=== PATIENT | female | born 1960 | race Caucasian/White ===

== ENCOUNTER 2018-07-20 03:27 | Emergency (ER) | payer MEDICARE, MEDICAID ==
[~2018-07-20] VITALS: Ht 162.6 cm; Wt 95.0 kg
[2018-07-20] MEDS ORDERED: ipratropium/albuterol 3ml nebule NEB ONE (03:30)
[2018-07-20] MEDS ORDERED: predniSONE 20 mg tablet PO ONE (03:30)
[2018-07-20 03:33] VITALS: BP 125/105
[2018-07-20] MEDS ORDERED: PRED20TA PO (03:52)
[2018-07-20] MEDS ORDERED: LEVO500T89 PO (03:52)
[2018-07-20 04:17] LABS: BASOPHILS # (AUTO) 0.1 X10'3 (0-0.2); BASOPHILS % (AUTO) 0.6 % (0-1); EOSINOPHILS # (AUTO) 0.3 X10'3 (0-0.9); EOSINOPHILS % (AUTO) 3.4 % (0-6); HEMATOCRIT 45.6 % (35.0-45.0); HEMOGLOBIN 14.9 g/dl (12.0-16.0); LYMPHOCYTES # (AUTO) 2.9 X10'3 (1.1-4.8); LYMPHOCYTES % (AUTO) 33.5 % (21-51); MEAN CORPUSCULAR HGB CONC 32.7 % (33.0-36.5); MEAN CORPUSCULAR VOLUME 85.7 FL (78-98); MEAN PLATELET VOLUME 10.7 FL (7.4-10.4); MONOCYTES # (AUTO) 0.5 X10'3 (0-0.9); MONOCYTES % (AUTO) 5.6 % (2-12); NEUTROPHILS % (AUTO) 56.9 % (42-75); PLATELET COUNT 145 X10'3 (140-440); RED BLOOD COUNT 5.32 X10'6 (4.20-5.60); RED CELL DISTRIBUTION WIDTH 15.6 % (11.5-14.5); WHITE BLOOD COUNT 8.7 X10'3 (4.5-11.0)
[2018-07-20 04:40] LABS: ALANINE AMINOTRANSFERASE 26 U/L (12-78); ALBUMIN 3.7 G/DL (3.4-5.0); ALBUMIN/GLOBULIN RATIO 1.3 (1.1-1.5); ALKALINE PHOSPHATASE 71 IU/L (46-116); ANION GAP 8 (8-16); ASPARTATE AMINO TRANSFERASE 18 U/L (10-37); BILIRUBIN,TOTAL 0.4 MG/DL (0.1-1.0); BLOOD UREA NITROGEN 15 MG/DL (7-18); BUN/CREATININE RATIO 21.1 (6.6-38.0); CHLORIDE 101 MMOL/L (99-107); CREATININE 0.71 MG/DL (0.40-0.90); GLUCOSE 210 MG/DL (70-104); MAGNESIUM 1.8 MG/DL (1.5-2.4); SODIUM 140 MMOL/L (135-145); TOTAL CARBON DIOXIDE 30.7 MMOL/L (24-32); TOTAL PROTEIN 6.6 G/DL (6.4-8.2); eGFR 84 ML/MIN
[2018-07-20 04:47] LABS: POTASSIUM 2.8 MMOL/L (3.5-5.1)
[2018-07-20] MEDS ORDERED: potassium Cl 20 mEq SR tablet PO STA (04:48)
[2018-07-20] MEDS ORDERED: POTA20TA19 PO (04:49)
== END 2018-07-20 05:10 | disposition home or self-care (01) ==
LOC: ER 03:27
DX: J40 Bronchitis, not specified as acute or chronic (principal); E87.6 Hypokalemia; J44.9 Chronic obstructive pulmonary disease, unspecified; F17.210 Nicotine dependence, cigarettes, uncomplicated; Z79.899 Other long term (current) drug therapy
CPT/HCPCS: 36415; 71045; 80053; 83735; 83880; 84484; 85025; 93005; 94640; 94760; 99284; J7512

== ENCOUNTER 2024-03-22 08:25 | Day surgery (SDC) | payer MEDICARE, MEDICAID ==
[2024-03-22 09:18] LABS: BASOPHILS # (AUTO) 0.1 X10'3 (0-0.2); BASOPHILS % (AUTO) 0.8 % (0-1); EOSINOPHILS # (AUTO) 0.2 X10'3 (0-0.9); EOSINOPHILS % (AUTO) 2.5 % (0-6); HEMATOCRIT 49.8 % (35.0-45.0); LYMPHOCYTES # (AUTO) 1.8 X10'3 (1.1-4.8); LYMPHOCYTES % (AUTO) 22.7 % (21-51); MEAN CORPUSCULAR HEMOGLOBIN 27.6 PG (27.0-31.0); MEAN CORPUSCULAR HGB CONC 32.2 g/dL (33.0-36.5); MEAN CORPUSCULAR VOLUME 85.7 FL (78-98); MEAN PLATELET VOLUME 9.7 FL (7.4-10.4); MONOCYTES # (AUTO) 0.6 X10'3 (0-0.9); MONOCYTES % (AUTO) 7.7 % (2-12); NEUTROPHILS # (AUTO) 5.2 X10'3 (1.8-7.7); NEUTROPHILS % (AUTO) 66.3 % (42-75); PLATELET COUNT 191 X10'3 (140-440); RED BLOOD COUNT 5.81 X10'6 (4.20-5.60); RED CELL DISTRIBUTION WIDTH 15.5 % (11.5-14.5); WHITE BLOOD COUNT 7.8 X10'3 (4.5-11.0)
[2024-03-22 09:22] LABS: APTT 27 SECONDS (22-32); INR 1.1 INR
[2024-03-22 09:26] LABS: ALBUMIN 3.9 G/DL (3.4-5.0); ANION GAP 6 (8-16); BLOOD UREA NITROGEN 17 MG/DL (7-18); BUN/CREATININE RATIO 22.1 (10.0-20.0); CALCIUM 9.8 MG/DL (8.5-10.1); CHLORIDE 99 MMOL/L (99-107); CHOL/HDL RATIO 2.7 (0.00-4.99); CHOLESTEROL 118 MG/DL (0-200); CREATININE 0.77 MG/DL (0.40-0.90); GLUCOSE 146 MG/DL (70-104); HDL CHOLESTEROL 44 MG/DL (35-60); LDL CHOLESTEROL 56 MG/DL (50-100); POTASSIUM 4.2 MMOL/L (3.5-5.1); SODIUM 140 MMOL/L (135-145); TOTAL CARBON DIOXIDE 35.5 MMOL/L (24-32); TRIGLYCERIDES 129 MG/DL (20-135); eGFR 75 ML/MIN
== END 2024-03-22 23:59 | disposition home or self-care (01) ==
LOC: SSTAY O 08:25
PROVIDERS: ATTEND Student in an Organized Health Care Education/Training Program
DX: I27.20 Pulmonary hypertension, unspecified (principal); Z53.8 Procedure and treatment not carried out for other reasons; I10 Essential (primary) hypertension; E11.51 Type 2 diabetes mellitus with diabetic peripheral angiopathy without gangrene; E78.00 Pure hypercholesterolemia, unspecified; J44.9 Chronic obstructive pulmonary disease, unspecified; E66.9 Obesity, unspecified; F43.10 Post-traumatic stress disorder, unspecified; F32.A Depression, unspecified; G47.33 Obstructive sleep apnea (adult) (pediatric); Z79.4 Long term (current) use of insulin; Z79.84 Long term (current) use of oral hypoglycemic drugs; Z79.899 Other long term (current) drug therapy
CPT/HCPCS: 36415; 80048; 80061; 85025; 85610; 85730; J7030

== ENCOUNTER 2024-04-23 11:32 | Day surgery (SDC) | payer MEDICARE, MEDICAID ==
[2024-04-19 11:27] LABS: BASOPHILS # (AUTO) 0.1 X10'3 (0-0.2); BASOPHILS % (AUTO) 0.6 % (0-1); EOSINOPHILS # (AUTO) 0.1 X10'3 (0-0.9); EOSINOPHILS % (AUTO) 0.7 % (0-6); HEMATOCRIT 46.2 % (35.0-45.0); LYMPHOCYTES # (AUTO) 1.1 X10'3 (1.1-4.8); LYMPHOCYTES % (AUTO) 12.4 % (21-51); MEAN CORPUSCULAR HEMOGLOBIN 27.2 PG (27.0-31.0); MEAN CORPUSCULAR HGB CONC 32.6 g/dL (33.0-36.5); MEAN CORPUSCULAR VOLUME 83.3 FL (78-98); MEAN PLATELET VOLUME 9.5 FL (7.4-10.4); MONOCYTES # (AUTO) 0.8 X10'3 (0-0.9); MONOCYTES % (AUTO) 8.7 % (2-12); NEUTROPHILS # (AUTO) 6.7 X10'3 (1.8-7.7); NEUTROPHILS % (AUTO) 77.6 % (42-75); PLATELET COUNT 136 X10'3 (140-440); RED BLOOD COUNT 5.54 X10'6 (4.20-5.60); RED CELL DISTRIBUTION WIDTH 16.2 % (11.5-14.5); WHITE BLOOD COUNT 8.7 X10'3 (4.5-11.0)
[2024-04-19 11:38] LABS: APTT 26 SECONDS (22-32); PROTHROMBIN TIME 11.1 SECONDS (9.0-12.0)
[2024-04-19 11:55] LABS: ALBUMIN 3.5 G/DL (3.4-5.0); ANION GAP 9 (8-16); BLOOD UREA NITROGEN 10 MG/DL (7-18); BUN/CREATININE RATIO 17.2 (10.0-20.0); CALCIUM 9.6 MG/DL (8.5-10.1); CHLORIDE 100 MMOL/L (99-107); CHOL/HDL RATIO 2.3 (0.00-4.99); CHOLESTEROL 108 MG/DL (0-200); CREATININE 0.58 MG/DL (0.40-0.90); GLUCOSE 170 MG/DL (70-104); HDL CHOLESTEROL 48 MG/DL (35-60); LDL CHOLESTEROL 43 MG/DL (50-100); POTASSIUM 3.7 MMOL/L (3.5-5.1); SODIUM 144 MMOL/L (135-145); TOTAL CARBON DIOXIDE 35.5 MMOL/L (24-32); TRIGLYCERIDES 67 MG/DL (20-135); eGFR > 90 ML/MIN
[~2024-04-23] VITALS: Ht 162.6 cm; Wt 86.9 kg
[2024-04-23] VITALS (8 sets, daily range): BP systolic 126–165; BP diastolic 56–74; PULSE 68–83; RESP 15–21; TEMP 98.9; O2SAT 86–94
[2024-04-23] MEDS ORDERED: CHOL500044 PO (12:35)
[2024-04-23] MEDS ORDERED: TRAZ-256 PO (12:35)
[2024-04-23] MEDS ORDERED: HYDR25TA4 PO (12:35)
[2024-04-23] MEDS ORDERED: NOVLG SQ (12:35)
[2024-04-23] MEDS ORDERED: BUSP10TA3 PO (12:35)
[2024-04-23] MEDS ORDERED: ALBU18HF2 PO (12:35)
[2024-04-23] MEDS ORDERED: BENA20TA82 PO (12:35)
[2024-04-23] MEDS ORDERED: ROPI0.2544 PO (12:35)
[2024-04-23] MEDS ORDERED: ROSU20TA73 PO (12:35)
[2024-04-23] MEDS ORDERED: POTA10CA95 PO (12:35)
[2024-04-23] MEDS ORDERED: FURO20TA4 PO (12:35)
[2024-04-23] MEDS ORDERED: DULO60CA65 PO (12:35)
[2024-04-23] MEDS ORDERED: GABA-535 PO (12:35)
[2024-04-23] MEDS ORDERED: METF-1203 PO (12:35)
[2024-04-23] MEDS: LORazepam 0.5 MG tablet PO PRN (12:38)
[2024-04-23] MEDS: diphenhydrAMINE 25mg capsule PO PRN (12:39)
[2024-04-23] MEDS: normal saline 1,000 ML IV SCH (12:40)
[2024-04-23] MEDS ORDERED: diphenhydrAMINE 25mg capsule PO PRN (12:42)
[2024-04-23] MEDS ORDERED: LIDOcaine 1% (10mg/ml) 2ml vial ONE (13:22)
[2024-04-23] MEDS ORDERED: fentaNYL/PF 50MCG/1 ML 2ML syringe ONE (13:22)
[2024-04-23] MEDS ORDERED: midazolam 1 mg/ML 2ml injection ONE (13:22)
[2024-04-23] MEDS ORDERED: iohexol 350 MG/ML 50ML vial IV ONE (13:23)
[2024-04-24 06:36] LABS: ISTAT HGB MIX 16.7 g/dl (12.0-16.0); ISTAT Hct MIX 49 %PCV (35-45); ISTAT O2 SATURATION MIX VENOUS 62 % (60-80); ISTAT SOURCE BLNK
== END 2024-04-23 16:20 | disposition home or self-care (01) ==
LOC: SSTAY O 11:32
PROVIDERS: ATTEND Internal Medicine Interventional Cardiology
DX: I27.20 Pulmonary hypertension, unspecified (principal); I44.4 Left anterior fascicular block; I11.9 Hypertensive heart disease without heart failure; E11.51 Type 2 diabetes mellitus with diabetic peripheral angiopathy without gangrene; E11.40 Type 2 diabetes mellitus with diabetic neuropathy, unspecified; E78.00 Pure hypercholesterolemia, unspecified; J44.9 Chronic obstructive pulmonary disease, unspecified; E66.9 Obesity, unspecified; F32.A Depression, unspecified; F43.10 Post-traumatic stress disorder, unspecified; G47.33 Obstructive sleep apnea (adult) (pediatric); Z79.4 Long term (current) use of insulin; Z79.84 Long term (current) use of oral hypoglycemic drugs; Z79.899 Other long term (current) drug therapy; Z68.32 Body mass index [BMI] 32.0-32.9, adult
CPT/HCPCS: 36415; 80048; 80061; 82803; 85014; 85025; 85610; 85730; 93005; 93451; 99152; A4615; A6258; C1751; J1644; J2001; J2250; J3010; J7030; Q9967; Z7610; 99153; J3490

== ENCOUNTER 2024-07-10 08:58 | Outpatient (CLI) | payer MEDICARE, MEDICAID ==
[~2024-07-10 08:58] MED LIST: ALBU18HF2 PO; BENA20TA82 PO; BUSP10TA3 PO; CHOL500044 PO; DULO60CA65 PO; FURO20TA4 PO; GABA-535 PO; HYDR25TA4 PO; METF-1203 PO; NOVLG SQ; POTA10CA95 PO; ROPI0.2544 PO; ROSU20TA98 PO; TRAZ-256 PO
== END 2024-07-10 23:59 | disposition home or self-care (01) ==
LOC: NM 08:58
PROVIDERS: ATTEND Internal Medicine Interventional Cardiology
DX: I27.23 Pulmonary hypertension due to lung diseases and hypoxia (principal); J44.9 Chronic obstructive pulmonary disease, unspecified; R06.02 Shortness of breath; E78.5 Hyperlipidemia, unspecified
CPT/HCPCS: 78582; A9539; A9540